=== PATIENT | female | born 1970 | race Caucasian/White ===

== ENCOUNTER 2025-01-05 10:06 | Outpatient (CLI) | payer OTHER, MEDICAID, SELFPAY ==
--- NOTE | 2025-01-05 10:18 | MM_ITS ---
WS: [id number] SCREENING DIGITAL BREAST TOMOSYNTHESIS MAMMOGRAM WITH CAD HISTORY: SCREENING COMPARISON: None available. Bilateral CC and MLO with tomosynthesis and synthetic mammography submitted. Computer aided detection analyzed. Breast composition: The breasts are heterogeneously dense, which may obscure small masses. Focal area of architectural distortion in the upper outer quadrant of the RIGHT breast. Distortion is at a middle depth. The remaining breasts are negative. No suspicious grouping of calcifications. MM/MM [facility] tomosynthesis [id number] IMPRESSION: BI-RADS: 0 - Incomplete: Need additional imaging evaluation FOLLOW UP: Need Additional Imaging RIGHT breast: Spot compression views (CC and MLO). True ML. Ultrasound to follo w if abnormality persists.
== END 2025-01-05 10:07 | disposition home or self-care (01) ==
LOC: RAD 10:12
PROVIDERS: Visit Provider Family Medicine
DX: Z12.31 Encounter for screening mammogram for malignant neoplasm of breast (principal); R92.333 Mammographic heterogeneous density, bilateral breasts; N63.11 Unspecified lump in the right breast, upper outer quadrant
CPT/HCPCS: 77063; 77067

== ENCOUNTER 2025-01-24 08:22 | Outpatient (CLI) | payer OTHER, MEDICAID, SELFPAY ==
--- NOTE | 2025-01-24 08:29 | MM_ITS ---
WS: [id number] ADDITIONAL VIEWS RIGHT MAMMOGRAM WITH DIGITAL BREAST TOMOSYNTHESIS. RIGHT BREAST ULTRASOUND HISTORY: R ABNORMAL MAMMOGRAM COMPARISON: 01/05/2025 RIGHT MAMMOGRAM: Spot compression views and true ML with digital breast tomosynthesis and SM. Breast composition: The breasts are heterogeneously dense, which may obscure small masses. Area of spiculation and distortion persists in the lateral RIGHT breast near 9- 10 o'clock at a middle depth. There is a small adjacent benign appearing calcification. No additional abnormalities. RIGHT BREAST ULTRASOUND 2-D and color Doppler imaging submitted. Ultrasound directed upper outer quadrant RIGHT breast. There is a very subtle area of distortion and soft tissue abnormality at 9:00, 1 cm from the nipple. This does correspond to the abnormality noted on mammogram. The ultrasound finding is not as significant and obvious as was expected in comparison to the mammographic findings. MM/MM diag [facility] tomosynthesis [id number] IMPRESSION: BI-RADS: 4 - Suspicious Finding - Biopsy Should Be Considered FOLLOW UP: Biopsy Recommended Ultrasound-guided biopsy recommended of the hypoechoic area at 9:00, 1 cm from the nipple which corresponds to the mammographic abnormality. The ultrasound fi ndings are not as marked as the mammographic abnormalities. There is an area of decreased echogenicity for which biopsy will be recommended. If biopsy is nega tive surgical excision will be recommended. Differential includes radial scar. Notified Robb Avelar MD at 01/24/2025 12:05 PM. Message left on voicemail.
== END 2025-01-24 08:23 | disposition home or self-care (01) ==
PROVIDERS: PCP Family Medicine; Visit Provider Family Medicine
DX: R92.8 Other abnormal and inconclusive findings on diagnostic imaging of breast (principal); R92.333 Mammographic heterogeneous density, bilateral breasts; R92.1 Mammographic calcification found on diagnostic imaging of breast; N63.15 Unspecified lump in the right breast, overlapping quadrants
CPT/HCPCS: 76642; 77061; G0279

== ENCOUNTER 2025-02-09 11:15 | Outpatient (CLI) | payer OTHER, MEDICAID, SELFPAY ==
--- NOTE | 2025-02-09 11:19 | US_ITS ---
WS: [id number] ULTRASOUND-GUIDED RIGHT BREAST BIOPSY CLINICAL INFORMATION: R ABNORMAL MAMMOGRAM FINDINGS: The procedure including risks, benefits, and complications were discussed with the patient who agreed to proceed. Using sterile technique patient was prepped and draped in the usual sterile fashion. After 1% lidocaine utilizing real-time ultrasound guidance 5 14-gauge cores were obtained of the RIGHT breast lesion at the 9:00 o'clock position. Subsequently a titanium clip was placed in the biopsy cavity. No immediate complications. US/[place] [id number] IMPRESSION: 1. Uncomplicated ultrasound-guided RIGHT breast biopsy. 2. 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 No atypia or malignancy is identified. DENSITY: The breasts are heterogeneously dense, which may obscure small masses. BI-RADS: 4- Suspicious Finding - Biopsy Should be Considered FOLLOW UP: Surgical Biopsy Recommended Radial scars are considered high risk lesions with increased association of car cinoma. Although no atypia or malignancy identified in this case, recommend [facility] surgery consultation for consideration of resection
== END 2025-02-09 11:16 | disposition home or self-care (01) ==
PROVIDERS: PCP Family Medicine; Visit Provider Family Medicine
DX: R92.8 Other abnormal and inconclusive findings on diagnostic imaging of breast (principal); R92.0 Mammographic microcalcification found on diagnostic imaging of breast
CPT/HCPCS: 19083; 88305